=== PATIENT | female | born 1995 | race Caucasian/White ===

== ENCOUNTER 2023-11-22 16:07 | Emergency (ER) | payer SELFPAY ==
[~2023-11-22] VITALS: Ht 162.6 cm; Wt 72.7 kg
[2023-11-22 16:10] VITALS: BP 122/81; PULSE 86; RESP 18; TEMP 98.5; O2SAT 100
[2023-11-22 19:38] LABS: BASOPHILS % 0.5 % (0.0-2.0); EOSINOPHILS % 1.5 % (0.0-5.0); HEMATOCRIT. 40.7 % (36.0-48.0); HEMOGLOBIN. 13.6 g/dL (12.0-16.0); LYMPHOCYTES % 39.1 % (20.0-50.0); MEAN CORPUSCULAR HGB CONC 33.4 g/dL (31.0-37.0); MEAN CORPUSCULAR VOLUME 86.6 fL (81.0-99.0); MEAN PLATELET VOLUME 8.6 fl (7.4-10.4); MONOCYTES % 8.2 % (2.0-8.0); NEUTROPHILS % 50.7 % (40.0-76.0); PLATELET 277 x1000/uL (130-400); RED CELL DISTRIBUTION WIDTH 13.9 % (11.6-14.6); WHITE BLOOD COUNT 8.4 x1000/uL (4.5-11.0)
[2023-11-22 19:43] LABS: CARBON DIOXIDE 25 mEq/L (21-32); CHLORIDE 105 mEq/L (98-107); POTASSIUM 3.8 mEq/L (3.5-5.1); SODIUM 136 mEq/L (136-145)
[2023-11-22 19:44] LABS: CALCIUM 9.8 mg/dL (8.7-10.4)
[2023-11-22 19:48] LABS: CREATININE 0.8 mg/dL (0.6-1.0)
[2023-11-22 19:49] LABS: GLUCOSE 79 mg/dL (70-105); UREA NITROGEN BLOOD 8 mg/dL (9-23)
[2023-11-22 19:58] LABS: TROPONIN I HIGH SENSITIVITY < 4 ng/L (3.0-34)
[2023-11-22 19:59] LABS: HCG SCREEN NEGATIVE
[2023-11-22] MEDS: ACETAMINOPHEN 325MG TABLET PO ONE (20:04)
[2023-11-22] MEDS: LORAZEPAM 0.5MG TABLET PO ONE (20:04)
== END 2023-11-22 20:57 | disposition home or self-care (01) ==
LOC: ER 16:07
DX: R07.9 Chest pain, unspecified (principal); R20.2 Paresthesia of skin; Z90.49 Acquired absence of other specified parts of digestive tract
CPT/HCPCS: 36415; 71045; 73060; 73090; 73130; 80048; 84484; 84703; 85025; 93005; 99285